=== PATIENT | female | born 1985 | race Caucasian/White ===

== ENCOUNTER → 2017-04-04 | Day surgery (SDC) | payer MEDICAID ==
[~2017-04-04] VITALS: Ht 160 cm; Wt 64.0 kg
[~2017-04-04] MED LIST: CEFAZOLIN SODIUM 1000MG/VIAL ONE; DEPOPROVERA IM; FENTANYL CITRATE/PF 50MCG/ML 2ML VIAL IV PRN; FERRIC SUBSULFATE SOLN 8GM TOP SCH; HYDROCODONE/ACETAMINOPHEN 5/325MG TABLET PO PRN; HYDROMORPHONE HCL/PF 2MG/ML CPJ IV PRN; LACTATED RINGERS 1,000 ML IV SCH; LIDOCAINE HCL 1% 20ML VIAL (Pyxis) INJ ONE; METOCLOPRAMIDE HCL 10MG/2ML VIAL ONE; MIDAZOLAM HCL 2 MG/2 ML VIAL ONE; MULT-1146 PO; ONDANSETRON HCL 4MG/2ML VIAL IV PRN; POTASSIUM IODIDE/IODINE 20ML TOP SCH; PROPOFOL 200MG/20ML VIAL IV ONE; SUCCINYLCHOLINE CHLORIDE 200MG/10ML VIAL IV ONE
[2017-04-04 06:11] LABS: BASOPHILS % 0.8 % (0.0-2.0); EOSINOPHILS % 5.3 % (0.0-5.0); HEMATOCRIT. 40.8 % (36.0-48.0); HEMOGLOBIN. 13.4 g/dL (12.0-16.0); LYMPHOCYTES % 28.6 % (20.0-50.0); MEAN PLATELET VOLUME 7.4 fl (7.4-10.4); MONOCYTES % 8.7 % (2.0-8.0); NEUTROPHILS % 56.6 % (40.0-76.0); PLATELET 335 x1000/uL (130-400); RED BLOOD CELL COUNT 4.64 mill/uL (4.2-5.4); RED CELL DISTRIBUTION WIDTH 13.5 % (11.6-14.6)
[2017-04-04 06:14] LABS: CLARITY URINE CLEAR (CLEAR); COLOR URINE YELLOW (YELLOW); GLUCOSE URINE NEGATIVE (NEGATIVE); KETONES URINE NEGATIVE (NEGATIVE); LEUKOCYTE ESTERASE URINE NEGATIVE (NEGATIVE); NITRITE URINE NEGATIVE (NEGATIVE); OCCULT BLOOD URINE NEGATIVE (NEGATIVE); PROTEIN URINE NEGATIVE (NEGATIVE)
[2017-04-04 06:20] LABS: UCG SCREEN NEGATIVE
== END | disposition home or self-care (01) ==
LOC: OR 05:35
PROVIDERS: ATTEND Obstetrics & Gynecology
DX: D06.9 Carcinoma in situ of cervix, unspecified (principal)
CPT/HCPCS: 36415; 57522; 81003; 81025; 85025; 88305; 88307; J0330; J0690; J2250; J2765; J3010; J3490; J7120; J2704